=== PATIENT | male | born 1930 | race Caucasian/White ===

== ENCOUNTER 2016-08-21 06:50 | Day surgery (SDC) | payer MEDICARE, BC ==
[~2016-08-21 06:50] MED LIST: Lactated Ringers 1,000 ML IV SCH; Sodium Chloride 0.9% 10 ML Syringe FLUSH PRN
[2016-08-21] MEDS ORDERED: Midazolam 1 MG/ML 2 ML SDV IV ONE (08:00)
[2016-08-21] MEDS ORDERED: ceFAZolin 1 GM Vial IV ONE (08:00)
[2016-08-21] MEDS ORDERED: Propofol 200 MG/20 ML SDV IV ONE (08:00)
--- NOTE | 2016-08-21 08:19 | PCM.PN ---
- General Info Date of Service: 08/21/16 - Review of Systems Systems Review Comment:: 85 y/o male here for colonoscopy. He has a history of colon resection. He has been having stable bowel function but it has been several years since his last colonoscopy. He is medically stable to proceed. The patient has a artificial cardiac valve and antibiotics will be given. I have discussed the proposed colonoscopy with the patient. He understands indications and risks and he agrees to proceed. - Patient Data Vitals - most recent: Last Vital Signs Temp 98 F 08/21/16 07:16 Pulse 112 H 08/21/16 07:16 Resp 16 08/21/16 07:16 BP 152/93 H 08/21/16 07:16 Pulse Ox 95 08/21/16 07:16 Weight - most recent: 215 lb Med Orders - Current: Current Medications Lactated Ringer's (Ringers, Lactated) 1,000 mls @ 125 mls/hr IV ASDIRECTED JULIANN Last Admin: 08/21/16 07:47 Dose: 125 mls/hr Sodium Chloride (Saline Flush) 10 ml FLUSH ASDIRECTED PRN PRN Reason: Keep Vein Open - Problem List Review Problem List Initiated/Reviewed/Updated: Yes - My Orders Last 24 Hours: My Active Orders 08/21/16 06:45 Patient Status [ADT] Routine Verify Patient Consent Obtain [RC] ASDIRECTED Lactated Ringers [Ringers, Lactated] 1,000 ml IV ASDIRECTED Sodium Chloride 0.9% [Saline Flush] 10 ml FLUSH ASDIRECTED PRN Peripheral IV Insertion Adult [OM.PC] Routine - Assessment Assessment:: History of dysplastic colon polyp - Plan Plan:: Colonoscopy
--- NOTE | 2016-08-21 08:45 | PCM.OPNOTE ---
- General Post-Op/Procedure Note Date of Surgery/Procedure: 08/21/16 Operative Procedure(s): Colonoscopy Findings: Normal appearing post op colon Pre Op Diagnosis: History of Dysplastic polyp Post-Op Diagnosis: Normal Post op Colon Anesthesia Technique: MAC Primary Surgeon: Newton Koch Pathology: none Output, Urine Amount: 0 EBL in mLs: 0 Complications: None Condition: Good
--- NOTE | 2016-08-21 09:53 | OR ---
DATE OF OPERATION: 08/21/2016 SURGEON: Newton Koch MD PREOPERATIVE DIAGNOSIS: History of dysplastic colon polyp. POSTOPERATIVE DIAGNOSIS: Normal postop colon. OPERATION PERFORMED: Colonoscopy. INDICATIONS FOR SURGERY: This 85-year-old male has a history of having had a colon resection for dysplastic colon polyp. He comes for surveillance colonoscopy. FINDINGS: No polyps were seen on today's exam. The patient's remaining colon appears normal. The anastomosis appears normal with a patent anastomosis, which was cannulated and the terminal ileum also appeared normal. PROCEDURE IN DETAIL: The patient was taken to the procedure room. He was given intravenous sedation and with him in the left lateral decubitus position digital rectal exam was performed showing no rectal masses. The Olympus colonoscope was inserted into the rectum. Retroflexed examination of the rectal canal was performed. The scope was then carefully advanced under direct visualization through the entire length of the colon until the anastomosis was reached. The anastomosis was readily identified by its configuration. The anastomosis was cannulated and the terminal ileal examined and found to appear normal. The scope was then slowly withdrawn sequentially re-examining the colonic segments. Once the entire colon and rectum had been fully examined, the scope was removed and the patient was taken from the procedure room in satisfactory condition. ESTIMATED BLOOD LOSS: Zero. COMPLICATIONS: None. PROGNOSIS: Good. /[id number] ASPEN/MILLIE
[2016-08-21 09:58] VITALS: BP 160/90
== END 2016-08-21 10:11 | disposition home or self-care (01) ==
LOC: FB.SDS 06:50
PROVIDERS: ATTEND Surgery
DX: Z12.11 Encounter for screening for malignant neoplasm of colon (principal); Z86.010 Personal history of colon polyps; I25.10 Atherosclerotic heart disease of native coronary artery without angina pectoris; I10 Essential (primary) hypertension; E78.5 Hyperlipidemia, unspecified; I50.9 Heart failure, unspecified; E87.6 Hypokalemia; Z95.1 Presence of aortocoronary bypass graft; Z95.2 Presence of prosthetic heart valve; Z96.649 Presence of unspecified artificial hip joint; E66.3 Overweight
CPT/HCPCS: 00810; G0105; J0690; J2250; J2704; J7120